=== PATIENT | male | born 1970 | race Two or more races ===

== ENCOUNTER 2020-09-13 09:09 | Outpatient (CLI) | payer OTHER | END 2020-09-13 09:25 | disposition home or self-care (01) | LOC: MRI 09:09 | PROVIDERS: ATTEND Physical Medicine & Rehabilitation | DX: S43.432D Superior glenoid labrum lesion of left shoulder, subsequent encounter (principal) | CPT/HCPCS: 73221 ==

== ENCOUNTER → 2023-06-05 | Day surgery (SDC) | payer OTHER ==
[2023-05-29 08:49] LABS: PH,URINE 5.5 (5.0-8.0); URINE APPEARANCE Clear; URINE BILIRRUBIN Negative (NEGATIVE); URINE BLOOD Negative; URINE COLOR Dark Yellow; URINE GLUCOSE Negative (NEGATIVE); URINE LEUKOCYTE Negative; URINE NITRATE Negative; URINE PROTEIN Negative (NEGATIVE); URINE UROBILINOGEN 0.2 E.U./dl
[2023-05-29 08:53] LABS: HEMATOCRIT 37.8 % (39.0-48.0); HEMOGLOBIN 12.9 g/dL (13-16.00); MEAN CELL VOLUME 82.9 fL (80.0-100.00); MEAN CORPUSCULAR HEMOGLOBIN 28.4 pg (27.00-32.0); MEAN CORPUSCULAR HGB CONC 34.2 g/dl (32.0-36.0); PLATELET COUNT 284 K/uL (150-450); RED BLOOD COUNT 4.57 M/uL (4.00-6.00); RED CELL DISTRIBUTION WIDTH 15.4 % (11.5-14.5)
[2023-05-29 08:53] LABS: URINE EPITHELIAL CELLS 4.6 uL (0.0-38.8); URINE RBC 10.6 uL (0.0-20.8); URINE WBC 3.3 uL (0.0-23.2)
[2023-05-29 09:01] LABS: URINE BACTERIA 3.7 uL (0.0-1933)
[2023-05-29 09:16] LABS: INR 1.04; PARTIAL THROMBOPLASTIN TIME 25.9 SECONDS (22.0-34.0); PROTHROMBIN TIME 10.9 SECONDS (9.0-11.5)
[2023-05-29 09:19] LABS: ALBUMIN 3.9 gm/dL (3.4-5.0); BILIRUBIN TOTAL 0.91 mg/dL (0.3-1.2); CALCIUM 9.3 mg/dL (8.5-10.1); CREATININE SERUM 1.4 mg/dL (0.70-1.30); GFR 53.43; GLOBULINA 3.2 G/DL (2.4-3.5); POTASSIUM 3.76 mEq/L (3.5-5.1); TOTAL PROTEIN 7.1 gm/dL (6.4-8.2)
[~2023-06-05] MED LIST: AMIODARONE 200 MG; BUPIVACAINE HCL 30 ML VIAL IJ ONE; BUPIVACAINE HCL/PF 0.5% 30ML ML ONE; CEFAZOLIN SODIUM 1,000 MG VIAL IV ONE; CEFAZOLIN SODIUM 1,000 MG VIAL ONE; COZAAR50 MG PO; ISOPROPYL ALCOHOL 30 ML OUNCE TOP ONE; KAPVAY0.1 MG PO; KETOROLAC TROMETHAMINE 30 MG VIAL IM ONE; KETOROLAC TROMETHAMINE 30 MG VIAL IU ONE; KETOROLAC TROMETHAMINE 30 MG VIAL ONE; LIDOCAINE HCL 1%/Epi 20ML VIAL IJ ONE; OMEPRAZOLE40 MG PO; QUESTRAN LIGHT210 GM; VERAPAMIL; VISTARIL25 MG PO
== END | disposition home or self-care (01) ==
LOC: ADM 05-29 08:00 → CIR.AMB 06-04 08:00
PROVIDERS: ATTEND Orthopaedic Surgery
DX: M75.102 Unspecified rotator cuff tear or rupture of left shoulder, not specified as traumatic (principal); M75.22 Bicipital tendinitis, left shoulder; Z91.013 Allergy to seafood

== ENCOUNTER 2024-11-04 09:45 | Day surgery (SDC) | payer OTHER ==
[2024-10-26 07:17] LABS: URINE APPEARANCE Clear; URINE BILIRRUBIN Negative (NEGATIVE); URINE BLOOD Negative; URINE COLOR Yellow; URINE GLUCOSE Negative (NEGATIVE); URINE KETONE Negative (NEGATIVE); URINE LEUKOCYTE Negative; URINE NITRATE Negative; URINE PROTEIN Negative (NEGATIVE); URINE UROBILINOGEN 1.0 E.U./dl
[2024-10-26 07:20] LABS: BASO % 0.3 % (0.1-1.2); EOS # 0.15 (0.04-0.54); EOS % 2.0 % (0.7-7.0); LYMPH # 2.68 (1.18-3.74); LYMPH % 36.5 % (19.3-53.1); MEAN PLATELET VOLUME 10.10 fl (9.4-12.4); MONO # 0.66 (0.24-0.82); MONO % 9.0 % (4.7-12.5); NEUT # 3.83 (1.56-6.13); NEUT % 52.1 % (34.0-71.1); RED CELL DISTRIBUTION WIDTH 14.5 % (11.6-14.4)
[2024-10-26 07:21] LABS: URINE BACTERIA 4.7 uL (0.0-1933); URINE EPITHELIAL CELLS 2.9 uL (0.0-38.8); URINE RBC 3.3 uL (0.0-20.8)
[2024-10-26 07:36] LABS: INR 1.09
[2024-10-26 07:39] LABS: URINE CAST 0.00 uL (0.0-1.40); URINE WBC 1.3 uL (0.0-23.2)
[2024-10-26 08:00] LABS: ALT/SGPT 382.0 U/L (12-78); AST/SGOT 132.0 U/L (15-37); BILIRUBIN TOTAL 1.13 mg/dL (0.3-1.2); BUN CREA RATIO 9.0 (7.0-25.0); CREATININE SERUM 1.17 mg/dL (0.70-1.30); GFR 65.46; GLOBULINA 3.0 G/DL (2.4-3.5); GLUCOSE FASTING 92.0 mg/dL (65-100); OSMOLALITY SERUM 280.0 MOSM/KG (275-295)
[~2024-11-04 09:45] MED LIST changes: -BUPIVACAINE HCL 30 ML VIAL IJ ONE; -BUPIVACAINE HCL/PF 0.5% 30ML ML ONE; -CEFAZOLIN SODIUM 1,000 MG VIAL IV ONE; -CEFAZOLIN SODIUM 1,000 MG VIAL ONE; +FLECAINIDE ACET50 MG PO; -ISOPROPYL ALCOHOL 30 ML OUNCE TOP ONE; -KETOROLAC TROMETHAMINE 30 MG VIAL IM ONE; -KETOROLAC TROMETHAMINE 30 MG VIAL IU ONE; -KETOROLAC TROMETHAMINE 30 MG VIAL ONE; +LANOXIN250 MCG PO; -LIDOCAINE HCL 1%/Epi 20ML VIAL IJ ONE
[2024-11-04] MEDS ORDERED: CEFAZOLIN SODIUM 1,000 MG VIAL IV ONE (13:00)
[2024-11-04] MEDS ORDERED: BUPIVACAINE HCL 30 ML VIAL IV ONE (13:15)
[2024-11-04] MEDS ORDERED: LIDOCAINE HCL 1%/EPINEPHRINE 20ML VIAL IJ ONE (13:15)
[2024-11-04] MEDS ORDERED: ISOPROPYL ALCOHOL 30 ML OUNCE TOP ONE (13:15)
[2024-11-04] MEDS ORDERED: SUGAMMADEX SODIUM 200 MG/2 ML VIAL IV ONE (13:30)
[2024-11-04] MEDS ORDERED: MORPHINE SULFATE 4 MG/ML VIAL IV ONE (14:50)
== END 2024-11-04 16:00 | disposition home or self-care (01) ==
LOC: CIR.AMB 09:45
PROVIDERS: ATTEND Orthopaedic Surgery
DX: M75.122 Complete rotator cuff tear or rupture of left shoulder, not specified as traumatic (principal); M75.22 Bicipital tendinitis, left shoulder; M24.122 Other articular cartilage disorders, left elbow